=== PATIENT | male | born 1950 | race Caucasian/White ===

== ENCOUNTER 2017-08-13 08:11 | Emergency (ER) | payer MEDICARE, BC ==
[2017-08-13] MEDS ORDERED: [UNRECOGNIZED DRUG - REMARK] PO (08:20)
[2017-08-13 08:48] LABS: INFLUENZA A NONE DETECTED (NONE DETECT); INFLUENZA B NONE DETECTED (NONE DETECT)
[2017-08-13 09:55] VITALS: BP 129/67
[2017-08-13] MEDS ORDERED: AMOXICILLIN500 M2 PO (09:56)
== END 2017-08-13 09:55 | disposition home or self-care (01) ==
LOC: ED 08:11
PROVIDERS: Emergency Medicine
DX: J02.0 Streptococcal pharyngitis (principal); R05 Cough

== ENCOUNTER 2019-11-01 | Emergency (ER) | payer MEDICARE, BC ==
[~2019-11-01] MED LIST: AMOXICILLIN500 M2 PO; [UNRECOGNIZED DRUG - REMARK] PO
[2019-11-01 05:44] LABS: HEMATOCRIT 45.6 % (39.0-50.0); HEMOGLOBIN 15.1 g/dl (14.0-18.0); IMMATURE GRANULOCYTES 1.5 % (0.0-5.0); MEAN CELL VOLUME 95.6 fL CALC (80.0-100.0); MEAN CORPUSCULAR HGB 31.7 pG CALC (26.0-32.0); MEAN CORPUSCULAR HGB CONC 33.1 g/L CALC (32.0-36.0); NEUT# 9.98 thou/uL (1.82-7.42); RED BLOOD COUNT 4.77 mill/uL (4.70-6.10); RED CELL DISTRI WIDTH 14.7 % (11.5-15.5)
[2019-11-01 05:52] LABS: ALBUMIN 3.8 g/dL (3.2-5.0); ALKALINE PHOSPHATASE 60 u/l (38-126); ANION GAP 8 (6-22 (CALC)); BILIRUBIN, TOTAL 0.4 mg/dL (0.0-1.4); BUN 18 mg/dL (8-23); BUN/CREATININE RATIO 22 (12-20 (CALC)); CARBON DIOXIDE 31 mmol/l (22-30); CHLORIDE 101 mmol/l (95-108); CREATININE 0.8 mg/dL (0.7-1.3); GFR > 60 ML/MIN (>=60 (CALC)); GFR FOR AFR.AMER. > 60 ML/MIN (>=60 (CALC)); POTASSIUM 4.5 mmol/l (3.5-5.1); SGOT/AST 32 u/l (19-48); SODIUM 136 mmol/l (137-146); TOTAL PROTEIN 6.7 g/dL (6.3-8.2)
[2019-11-01 05:53] LABS: AMYLASE 92 u/l (30-110); LIPASE 199 u/l (23-300)
[2019-11-01] MEDS ORDERED: ULTRAM50 M1 PO (07:15)
[2019-11-01 07:20] LABS: URINE BILIRUBIN - DIPSTICK NEGATIVE (NEGATIVE); URINE BLOOD DIPSTICK NEGATIVE (NEGATIVE); URINE COLOR YELLOW; URINE GLUCOSE - DIPSTICK NEGATIVE (NEGATIVE); URINE KETONE NEGATIVE (NEGATIVE); URINE LEUK ESTERASE NEGATIVE (NEGATIVE); URINE NITRITE - DIPSTICK NEGATIVE (Negative); URINE PROTEIN - DIPSTICK NEGATIVE (NEG-TRACE); URINE UROBILINOGEN - DIPSTICK 0.2 E.U./dL (0.2)
[2019-11-01] MEDS ORDERED: ROBITUSSIN AC10 ML PO (07:22)
[2019-11-05] MEDS ORDERED: EZALLOR SPRINKLE5 MG PO (12:11)
== END 2019-11-01 07:32 | disposition home or self-care (01) ==
PROVIDERS: Emergency Medicine
DX: K40.90 Unilateral inguinal hernia, without obstruction or gangrene, not specified as recurrent (principal)
CPT/HCPCS: Q9967

== ENCOUNTER 2019-11-07 | Day surgery (SDC) | payer MEDICARE, BC ==
[~2019-11-07] MED LIST changes: +EZALLOR SPRINKLE5 MG PO; +ROBITUSSIN AC10 ML PO; +ULTRAM50 M1 PO
[2019-11-07] MEDS ORDERED: PERCOCET 5/325M1 TAB PO (10:04)
== END 2019-11-07 12:20 | disposition home or self-care (01) ==
PROC: 0YUA4JZ Supplement Bilateral Inguinal Region with Synthetic Substitute, Percutaneous Endoscopic Approach (ICD-10-PCS; principal; 2019-11-07)
PROC: 0VBG4ZZ Excision of Left Spermatic Cord, Percutaneous Endoscopic Approach (ICD-10-PCS; 2019-11-07)
DX: K40.20 Bilateral inguinal hernia, without obstruction or gangrene, not specified as recurrent (principal); D17.6 Benign lipomatous neoplasm of spermatic cord; F17.210 Nicotine dependence, cigarettes, uncomplicated
CPT/HCPCS: C1781; J0131; J1100; J2710